=== PATIENT | male | born 1950 | race Caucasian/White ===

== ENCOUNTER 2024-09-28 09:53 | Emergency (ER) | payer MEDICARE, OTHER ==
[2024-09-28 10:24] LABS: BASOPHILS PERCENT AUTO 0.5 % (0.0-1.0); EOSINOPHILS PERCENT AUTO 4.7 % (1.0-3.0); HEMATOCRIT 37.1 % (40.0-54.0); HEMOGLOBIN 12.4 g/dL (14.0-18.0); LYMPHOCYTES PERCENT AUTO 20.1 % (20.5-50.1); MEAN CORPUSCULAR HEMOGLOBIN 28.7 pg (27.0-34.0); MEAN CORPUSCULAR HGB CONC 33.4 g/dL (33.0-35.0); MEAN CORPUSCULAR VOLUME 85.9 fL (80-100); MONOCYTES PERCENT AUTO 7.1 % (2-8); NEUTROPHILS PERCENT AUTO 67.6 % (42.2-75.2); PLATELET COUNT,PLT 291 10^3/uL (150-450); RED BLOOD CELL COUNT 4.32 10^6/uL (4.6-6.2); WHITE BLOOD CELL COUNT,WBC 7.5 10^3/uL (5.0-10.0)
[2024-09-28 10:40] LABS: A/G RATIO 1.1; ALANINE AMINOTRANSFERASE,ALT 33 U/L (16-63); ALBUMIN 3.4 g/dL (3.4-5.0); ALKALINE PHOSPHATASE 123 U/L (46-116); ANION GAP 13.2 mEq/L (7-13); ASPARTATE AMNIOTRANSFERASE,AST 20 U/L (15-37); BILIRUBIN TOTAL 0.5 mg/dL (0.2-1.0); BLOOD UREA NITROGEN,BUN 17 mg/dL (7-18); BUN/CREATININE RATIO 15.9 (No establ ref range); CALCIUM 8.9 mg/dL (8.5-10.1); CARBON DIOXIDE,CO2 26 mmol/L (21-32); CHLORIDE,CL 104 mmol/L (98-107); CREATININE 1.07 mg/dL (0.70-1.30); GLUCOSE RANDOM 102 mg/dL (70-99); POTASSIUM,K 4.2 mmol/L (3.5-5.1); PROTEIN TOTAL,TP 6.6 g/dL (6.4-8.2); SODIUM,NA 139 mmol/L (136-145)
[2024-09-28 10:42] LABS: ESTIMATED GFR 74 mL/min (>=60)
== END 2024-09-28 11:09 | disposition home or self-care (01) ==
LOC: DL.ED 09:53
DX: D36.9 Benign neoplasm, unspecified site (principal); R60.0 Localized edema
CPT/HCPCS: 36415; 80053; 85025; 93971; 99284